=== PATIENT | female | born 1995 | race African-American/Black ===

== ENCOUNTER 2016-08-28 14:47 | Emergency (ER) | payer OTHER ==
[~2016-08-28] VITALS: Ht 167.6 cm; Wt 51.7 kg
[2016-08-28 15:03] LABS: URINE BLOOD NEGATIVE (Negative); URINE COLOR YELLOW; URINE GLUCOSE-RANDOM* NEGATIVE (Negative); URINE KETONES 3+ (Negative); URINE NITRITE NEGATIVE (Negative); URINE PROTEIN (DIPSTICK) 2+ (Negative); URINE SPECIFIC GRAVITY >= 1.030 (1.003-1.035)
[2016-08-28 15:09] LABS: URINE BILIRUBIN NEGATIVE (Negative)
[2016-08-28 15:12] LABS: BACTERIA >30 Many /HPF (None Seen); CASTS None Seen /LPF (None Seen); SQUAMOUS >10 Many /LPF (0-3); URINE RBC None Seen /HPF (0-2); URINE WBC 6-15 Few /HPF (0-5)
[2016-08-28 15:13] LABS: CRYSTALS None Seen /LPF (None Seen)
[2016-08-28 16:02] LABS: ABSOLUTE NEUTROPHILS 7.1 thou/uL (1.4-8.2); BASOPHILS 0.4 % (0.0-2.0); EOSINOPHILS 0.3 % (0.0-3.0); HEMATOCRIT 38.8 % (37.0-47.0); HEMOGLOBIN 13.2 gm/dL (12.0-15.0); LYMPHOCYTES 13.6 % (24.0-44.0); MCH 32.6 pg (26.0-34.0); MCHC 34.1 g/dL (28.0-37.0); MCV 95.8 fL (80.0-100.0); MONOCYTES 6.9 % (1.0-8.0); PLATELET COUNT 231 thou/uL (150-400); POLYS 78.8 % (36.0-66.0); RBC 4.05 mil/uL (4.20-5.00); RDW 13.9 % (10.5-14.5)
[2016-08-28 16:06] LABS: MANUAL DIFF NO
[2016-08-28] MEDS ORDERED: PHENERGAN 25 MG25 M1 PO (16:06)
[2016-08-28] MEDS ORDERED: VITAFOL-OB+DHA1 EACH PO (16:06)
[2016-08-28] MEDS ORDERED: KEFLEX500 MG PO (16:06)
[2016-08-28 16:10] LABS: CREATININE 0.7 mg/dL (0.6-1.3); POTASSIUM 4.2 mmol/L (3.5-5.1)
[2016-08-28 16:44] VITALS: BP 120/81
== END 2016-08-28 16:46 | disposition home or self-care (01) ==
LOC: ER 14:47
PROVIDERS: Physician Assistant
DX: O21.0 Mild hyperemesis gravidarum (principal); Z3A.00 Weeks of gestation of pregnancy not specified; O23.31 Infections of other parts of urinary tract in pregnancy, first trimester; Z91.013 Allergy to seafood

== ENCOUNTER 2017-08-23 13:35 | Emergency (ER) | payer OTHER ==
[~2017-08-23] VITALS: Ht 167.6 cm; Wt 54.4 kg
[~2017-08-23 13:35] MED LIST: KEFLEX500 MG PO; PHENERGAN 25 MG25 M1 PO; VITAFOL-OB+DHA1 EACH PO
[2017-08-23] MEDS ORDERED: BACTRIM DS TAB1 EACH PO (14:35)
== END 2017-08-23 15:14 | disposition home or self-care (01) ==
LOC: ER 13:35
DX: L02.411 Cutaneous abscess of right axilla (principal)